=== PATIENT | male | born 1935 | race Caucasian/White ===

== ENCOUNTER 2020-12-23 06:12 | Day surgery (SDC) | payer MEDICARE, OTHER ==
[2020-11-22 14:54] LABS: BASOPHILS # (AUTO) 0.1 X10'3 (0-0.2); BASOPHILS % (AUTO) 0.9 % (0-1); EOSINOPHILS # (AUTO) 0.2 X10'3 (0-0.9); EOSINOPHILS % (AUTO) 3.3 % (0-6); LYMPHOCYTES # (AUTO) 1.5 X10'3 (1.1-4.8); LYMPHOCYTES % (AUTO) 25.3 % (21-51); MEAN CORPUSCULAR HEMOGLOBIN 31.3 PG (27.0-31.0); MEAN CORPUSCULAR HGB CONC 33.3 g/dL (33.0-36.5); MEAN CORPUSCULAR VOLUME 94.2 FL (78-98); MEAN PLATELET VOLUME 8.6 FL (7.4-10.4); MONOCYTES # (AUTO) 0.6 X10'3 (0-0.9); NEUTROPHILS # (AUTO) 3.6 X10'3 (1.8-7.7); NEUTROPHILS % (AUTO) 60.5 % (42-75); PRE OP HEMATOCRIT 41.1 % (42.0-52.0); PRE OP HEMOGLOBIN 13.7 g/dL (14.0-17.9); PRE OP PLATELET COUNT 142 X10'3 (140-440); RED BLOOD COUNT 4.36 X10'6 (4.70-6.10); RED CELL DISTRIBUTION WIDTH 13.3 % (11.5-14.5)
[2020-11-22 15:09] LABS: ALBUMIN 3.9 G/DL (3.4-5.0); ALBUMIN/GLOBULIN RATIO 1.1 (1.1-1.5); ALKALINE PHOSPHATASE 43 IU/L (46-116); BLOOD UREA NITROGEN 20 MG/DL (7-18); BUN/CREATININE RATIO 14.4 (5.4-32.0); CHLORIDE 106 MMOL/L (99-107); CREATININE 1.39 MG/DL (0.60-1.10); PRE OP ALT 15 U/L (30-65); PRE OP ANION GAP 8 (8-16); PRE OP AST 11 U/L (10-37); PRE OP BILIRUB, TOTAL 0.4 MG/DL (0.0-1.0); PRE OP GLUCOSE 120 MG/DL (70-104); PRE OP POTASSIUM 4.6 MMOL/L (3.4-5.1); PRE OP SODIUM 142 MMOL/L (135-145); TOTAL CARBON DIOXIDE 28.1 MMOL/L (24-32); TOTAL PROTEIN 7.3 G/DL (6.4-8.2); eGFR 49 ML/MIN
[~2020-12-23] VITALS: Ht 188 cm; Wt 81.6 kg
[~2020-12-23 06:12] MED LIST: AMA1T PO; APIX5TAB3 PO; ATOR10TA70 PO; BISO5TAB29 PO; DOCUMENT DATE & TIME OF BETA-BLOCKER PO ONE; FINA5TAB11 PO; FLO0.4C PO; LATA2.5D14 EACHEYE; LISI10TA27 PO; SPIR25TA5 PO; cefazolin/dext.iso 2gm/100ml IV ONE; famotidine 20mg tablet PO ONE; ringers solution, lacted 1,000 ML IV SCH
[2020-12-23 06:30] VITALS: BP 137/87
[2020-12-23] MEDS ORDERED: LIDOcaine 0.5% (5mg/ml) 50ml vial ONE ×2 (08:07→08:08)
[2020-12-23] MEDS ORDERED: BUPIVAcaine/PF 2.5mg/ml (0.25%) 10ml vial ONE (09:22)
[2020-12-23] MEDS ORDERED: fentaNYL/PF 50MCG/1 ML 2ML syringe ONE (09:50)
[2020-12-23] MEDS ORDERED: midazolam 1 mg/ML 2ml injection ONE (10:11)
--- NOTE | 2020-12-23 10:14 | NUR ---
PT AWAKE ALERT VSS NO DISTRESS, CORNELIO PAIN, +CMS TO LEFT HAND, WITH SOFT DRESSING TO LEFT HAND CDI. CONT TO MONITOR. Addendum: 12/23/20 at 1041 by Shaylee Nettles RN Amended: Links added.
[2020-12-23 10:24] VITALS: BP 129/81
[2020-12-23 10:37] VITALS: BP 131/83
--- NOTE | 2020-12-23 10:43 | NUR ---
PT MORE AWAKE VSS NO DISTRESS DENIES PAIN MOVING ALL FINGERS LEFT HAND. PT MEETS CRITERIA TO GO HOME, DC INSTR GIVEN. NO ?'S OR [facility]CERN FAMILY CALLED. Addendum: 12/23/20 at 1044 by Shaylee Nettles RN Amended: Links added.
== END 2020-12-23 10:54 | disposition home or self-care (01) ==
LOC: PAS 06:12
PROVIDERS: ATTEND Orthopaedic Surgery Hand Surgery
DX: G56.02 Carpal tunnel syndrome, left upper limb (principal); E11.9 Type 2 diabetes mellitus without complications; I11.9 Hypertensive heart disease without heart failure; Z85.528 Personal history of other malignant neoplasm of kidney; Z20.822 Contact with and (suspected) exposure to COVID-19; Z98.890 Other specified postprocedural states; Z95.0 Presence of cardiac pacemaker; Z88.2 Allergy status to sulfonamides; Z90.5 Acquired absence of kidney; Z79.01 Long term (current) use of anticoagulants; Z79.899 Other long term (current) drug therapy; Z79.84 Long term (current) use of oral hypoglycemic drugs
CPT/HCPCS: 36415; 64721; 80053; 82948; 85025; 87635; 93005; C9803; J2001; J2250; J3010; J3490; U0003; U0005; Z7506; Z7512; A4215; J7120

== ENCOUNTER 2021-02-17 06:47 | Day surgery (SDC) | payer MEDICARE, OTHER ==
[2021-02-10 15:39] LABS: BASOPHILS % (AUTO) 0.3 % (0-1); EOSINOPHILS # (AUTO) 0.1 X10'3 (0-0.9); EOSINOPHILS % (AUTO) 1.3 % (0-6); LYMPHOCYTES # (AUTO) 1.3 X10'3 (1.1-4.8); LYMPHOCYTES % (AUTO) 14.3 % (21-51); MEAN CORPUSCULAR HEMOGLOBIN 31.1 PG (27.0-31.0); MEAN CORPUSCULAR VOLUME 94.1 FL (78-98); MEAN PLATELET VOLUME 8.2 FL (7.4-10.4); MONOCYTES # (AUTO) 0.6 X10'3 (0-0.9); MONOCYTES % (AUTO) 6.9 % (2-12); NEUTROPHILS # (AUTO) 6.8 X10'3 (1.8-7.7); NEUTROPHILS % (AUTO) 77.2 % (42-75); PRE OP HEMATOCRIT 42.9 % (42.0-52.0); PRE OP HEMOGLOBIN 14.2 g/dL (14.0-17.9); PRE OP PLATELET COUNT 152 X10'3 (140-440); RED BLOOD COUNT 4.56 X10'6 (4.70-6.10); RED CELL DISTRIBUTION WIDTH 13.6 % (11.5-14.5)
[2021-02-10 15:56] LABS: ALBUMIN 3.9 G/DL (3.4-5.0); ALBUMIN/GLOBULIN RATIO 1.1 (1.1-1.5); ALKALINE PHOSPHATASE 55 IU/L (46-116); BLOOD UREA NITROGEN 25 MG/DL (7-18); BUN/CREATININE RATIO 19.7 (5.4-32.0); CALCIUM 9.4 MG/DL (8.5-10.1); CHLORIDE 106 MMOL/L (99-107); CREATININE 1.27 MG/DL (0.60-1.10); PRE OP ALT 17 U/L (30-65); PRE OP ANION GAP 10 (8-16); PRE OP AST 17 U/L (10-37); PRE OP BILIRUB, TOTAL 0.6 MG/DL (0.0-1.0); PRE OP GLUCOSE 115 MG/DL (70-104); PRE OP POTASSIUM 4.6 MMOL/L (3.4-5.1); PRE OP SODIUM 138 MMOL/L (135-145); TOTAL CARBON DIOXIDE 22.5 MMOL/L (24-32); TOTAL PROTEIN 7.5 G/DL (6.4-8.2); eGFR 54 ML/MIN
[2021-02-10 16:01] LABS: PRE OP INR 1.1 INR; PRE OP PROTIME 11.6 SECONDS (9.0-12.0)
[~2021-02-17] VITALS: Ht 188 cm; Wt 82.8 kg
[2021-02-17] VITALS (7 sets, daily range): BP systolic 107–135; BP diastolic 67–85
[~2021-02-17 06:47] MED LIST changes: -cefazolin/dext.iso 2gm/100ml IV ONE; +cefazolin/dext.iso 2gm/50ml 50 ML IV ONE
[2021-02-17] MEDS ORDERED: midazolam 1 mg/ML 2ml injection ONE (09:02)
[2021-02-17] MEDS ORDERED: fentaNYL/PF 50MCG/1 ML 2ML syringe ONE (09:02)
[2021-02-17] MEDS ORDERED: LIDOcaine 0.5% (5mg/ml) 50ml vial ONE (09:10)
[2021-02-17] MEDS ORDERED: ringers solution, lacted 1,000 ML IV SCH (09:15)
[2021-02-17] MEDS ORDERED: ondansetron/PF 4mg/2ml inj IV PRN (09:15)
[2021-02-17] MEDS ORDERED: morphine 2 MG/ML inj. syringe IV PRN (09:15)
[2021-02-17] MEDS ORDERED: hydrALAZINE 20mg/ml inj. IV PRN (09:15)
[2021-02-17] MEDS ORDERED: meperidine/PF 25mg/ml syringe IV PRN ×3 (09:15)
[2021-02-17] MEDS ORDERED: labetalol 20mg/4ml (5mg/ml) syringe IV PRN (09:15)
[2021-02-17] MEDS ORDERED: proCHLORperazine 10 MG/2 ml inj IV PRN (09:15)
[2021-02-17] MEDS ORDERED: morphine 4 MG/ML inj SYRINge IV PRN (09:15)
[2021-02-17] MEDS ORDERED: acetaminophen 1,000mg/100ml IV 100 ML IV PRN (09:15)
[2021-02-17] MEDS ORDERED: BUPIVAcaine/PF 2.5mg/ml (0.25%) 10ml vial IJ ONE (09:19)
--- NOTE | 2021-02-17 09:30 | NUR ---
ARRIVED FROM OR VIA GURNEY, WITH DR PRASAD, ANESTHESIA PRESENT FOR REPORT-PT AWAKE, DENIES PAIN, VSS, RIGHT HAND DRSG-CDI, FINGERS PINK,WARM, +CAP REFILL, PIV 20 G TO LEFT UE, ICE TO RIGHT EXTREMITY.
--- NOTE | 2021-02-17 10:20 | NUR ---
PT UP AND GETTING DRESSED, VSS, DENIES PAIN, RIGHT HAND-CSM INTACT, DRSG-CDI, FINGERS PINK WARM ABLE TO MOVE, PIV D/CD CANULA INTACT, D/C INSTRUCTIONS GIVEN TO PT-ALL QUESTIONS ANSWERED, PT TAKEN WITH ALL BELONGINGS TO DTRS VEHICLE
== END 2021-02-17 10:20 | disposition home or self-care (01) ==
LOC: PAS 06:47
PROVIDERS: ATTEND Orthopaedic Surgery Hand Surgery
DX: G56.01 Carpal tunnel syndrome, right upper limb (principal); E11.9 Type 2 diabetes mellitus without complications; I10 Essential (primary) hypertension; Z79.899 Other long term (current) drug therapy; Z79.01 Long term (current) use of anticoagulants; Z79.84 Long term (current) use of oral hypoglycemic drugs; Z88.2 Allergy status to sulfonamides; Z98.890 Other specified postprocedural states; Z85.528 Personal history of other malignant neoplasm of kidney; Z90.5 Acquired absence of kidney; Z95.0 Presence of cardiac pacemaker; Z20.822 Contact with and (suspected) exposure to COVID-19
CPT/HCPCS: 36415; 64721; 80053; 82948; 85025; 85610; 85730; J2001; J2250; J3010; J3490; U0003; U0005; Z7506; Z7512; A4215; J7120